=== PATIENT | male | born 1995 | race Caucasian/White ===

== ENCOUNTER 2020-06-06 01:42 | Emergency (ER) | payer OTHER ==
[~2020-06-06] VITALS: Ht 188 cm; Wt 87.3 kg
[2020-06-06 01:47] VITALS: BP 120/98; TEMP 98.2
[2020-06-06 03:17] VITALS: PULSE 94
[2020-06-13] MEDS ORDERED: SINGULAIR 110 MG/TAB PO (15:59)
== END 2020-06-06 03:15 | disposition home or self-care (01) ==
LOC: COL.ER 01:42
DX: S01.01XA Laceration without foreign body of scalp, initial encounter (principal); K21.9 Gastro-esophageal reflux disease without esophagitis; W18.2XXA Fall in (into) shower or empty bathtub, initial encounter; Y93.E1 Activity, personal bathing and showering

== ENCOUNTER → 2020-06-13 | Outpatient (CLI) | payer OTHER ==
[~2020-06-13] MED LIST: SINGULAIR 110 MG/TAB PO
[2020-06-13 15:58] VITALS: BP 99/64; PULSE 72; TEMP 98.4
== END ==
LOC: COL.ER 15:44
DX: Z48.02 Encounter for removal of sutures (principal)